=== PATIENT | female | born 1995 | race Caucasian/White ===

== ENCOUNTER 2017-02-05 17:21 | Emergency (ER) | payer SELFPAY ==
[~2017-02-05] VITALS: Ht 167.6 cm; Wt 45.0 kg
[~2017-02-05 17:21] MED LIST: TRAM-388 PO
[2017-02-05 17:30] VITALS: BP 149/88; PULSE 120; RESP 18; TEMP 98.2; O2SAT 97
[2017-02-05] MEDS ORDERED: TETANUS/DIPHTHERIA TOXOID ADULT 0.5 ML VIAL IM ONE (18:15)
[2017-02-05] MEDS ORDERED: IBUP800T23 PO (18:25)
[2017-02-05] MEDS ORDERED: CEPH-460 PO (18:25)
[2017-02-05 18:26] VITALS: PULSE 100; RESP 16; O2SAT 98
--- NOTE | 2017-02-05 18:26 | PD ---
HPI Chief Complaint: Laceration/Skin Injury Time Seen by Provider: 17:50 Travel History International Travel<30 days: No Contact w/Intl Traveler<30days: No Traveled to known affect area: No History of Present Illness HPI Patient is a 21-year-old female presenting to emergency for evaluation of laceration to her right third, fourth, and fifth fingers. Patient states she was reaching to her purse to get something when she cut them on her pocket knife which was open. She reports the pain is a 7 out of 10 and describes it as aching and sore. She is not up-to-date with her tetanus vaccine. She denies any other plaintive this time. She denies any numbness, tingling, weakness in her extremity. [facility] Past Medical History Diminished Hearing: No Fibromyalgia: Yes Musculoskeletal: Yes (BILATERAL WRIST FX'S AGE 1) Immunizations Current: Yes Migraines: Yes ?: Unknown LMP: 2 WEEKS AGO : 1 : 1 Social History Alcohol Use: Yes (MODERATE) Tobacco Use: Yes (1 PPD) Substance Use: Yes (MARIJUANA, QUIT K2 2011) Allergies-Medications (Allergen,Severity, Reaction): Coded Allergies: No Known Allergies (Verified , 09/14/14) Reported Meds & Prescriptions Reported Meds & Active Scripts Active No Active Prescriptions or Reported Medications Review of Systems Except as stated in HPI: all other systems reviewed are Neg Musculoskeletal: Positive: Pain Skin: Positive Other (laceration) Physical Exam Narrative GENERAL: Well-nourished, well-developed patient. SKIN: Focused skin assessment warm/dry. Right fifth finger on the palmar aspect has a 1 cm superficial laceration in between the PIP and DIP joint. Right fourth finger has a 0.5cm superficial abrasion to the palmar aspect in between the PIP and DIP joint. And the third finger on the right hand has a superficial abrasion 0.5 cm long HEAD: Normocephalic. EYES: No scleral icterus. No injection or drainage. NECK: Supple, trachea midline. No JVD or lymphadenopathy. CARDIOVASCULAR: Regular rate and rhythm without murmurs, gallops, or rubs. RESPIRATORY: Breath sounds equal bilaterally. No accessory muscle use. GASTROINTESTINAL: Abdomen soft, non-tender, nondistended. MUSCULOSKELETAL: No cyanosis, or edema. BACK: Nontender without obvious deformity. No CVA tenderness. Data Data Last Documented VS Vital Signs Date Time Temp Pulse Resp B/P Pulse Ox O2 Delivery O2 Flow Rate FiO2 02/05/17 17:30 98.2 120 18 149/88 97 Orders Tetanus/Diphtheria Tox Adult (Tetanus/Di (02/05/17 18:15) MDM Medical Decision Making Medical Screen Exam Complete: Yes Emergency Medical Condition: Yes Interpretation(s) Vital Signs Date Time Temp Pulse Resp B/P Pulse Ox O2 Delivery O2 Flow Rate FiO2 02/05/17 17:30 98.2 120 18 149/88 97 Differential Diagnosis Laceration versus abrasion versus tendon injury versus bleed versus iron Narrative Course Patient is a 21-year-old female presenting to the emergency room evaluation of lacerations to her right third, fourth, fifth fingers that she sustained when she cut her on her pocket knife. Patient's tetanus vaccine was updated emergency department, she is neurovascularly intact. She has full range of motion and sensation in her right hand and fingers. Please see procedure report for laceration repair. Patient was advised that sutures were needed, 7- 10 days. She is encouraged keeps it clean and dry, cover with nonocclusive dressing. She was encouraged return to emergency department for any new or worsening symptoms. Patient verbalized understanding of these instructions. Patient stable for discharge. Procedures Procedure Narrative LACERATION LOCATION: Right fifth finger on the palmar aspect LENGTH: 1 cm NUMBER OF STITCHES/FREEMAN: 4 stitches REPAIR: The area of the laceration was prepped with Betadine and sterilely draped. The laceration was infiltrated with 1% lidocaine]. The wound was copiously irrigated and explored without evidence of foreign body, tendon injury or neurovascular injury. The wound was closed using 4-0 Prolene. This was a 1 layer repair. A sterile dressing was applied. The patient was advised to keep the dressing clean and dry. Patient tolerated the procedure well. Right fourth and fifth fingers were amador taped together Diagnosis Primary Impression: Laceration of finger Qualified Code: S61.219A - Laceration of finger, initial encounter Additional Impressions: Abrasion, finger w/o infection Need for ecwyniqwrl-iceixir-xshteoilm (Tdap) vaccine Encounter for administration of vaccine Referrals: [facility] Primary Care Physician Patient Instructions: Care For Your Stitches (ED), General Instructions Additional Instructions: Stitches will need to be removed in 7-10 days Keep stitches clean and dry, cover with Band-Aid or nonocclusive dressing You may shower, avoid pools, lotions, lakes until wound is completely healed Return to emergency department for any new or worsening symptoms Med/Other Pt SpecificInfo: Prescription(s) given Scripts Ibuprofen 800 Mg [id number] Mg PO Q6HR PRN (PAIN) #40 TAB Ref 0 Prov:Bentia Espana 02/05/17 Cephalexin (Keflex)500 Mg [id number] Mg PO Q12H 7 Days Ref 0 Prov:Benita Espana 02/05/17 Disposition: 01 DISCHARGE HOME Condition: Stable Benita Espana Feb 05, 2017 18:26
== END 2017-02-05 19:08 | disposition home or self-care (01) ==
LOC: PHEFT 17:21
DX: S61.216A Laceration without foreign body of right little finger without damage to nail, initial encounter (principal); S60.414A Abrasion of right ring finger, initial encounter; S60.412A Abrasion of right middle finger, initial encounter; F17.200 Nicotine dependence, unspecified, uncomplicated; Z23 Encounter for immunization; Z87.39 Personal history of other diseases of the musculoskeletal system and connective tissue; W26.0XXA Contact with knife, initial encounter
CPT/HCPCS: 12001; 90471; 90714

== ENCOUNTER 2017-02-12 20:06 | Emergency (ER) | payer SELFPAY ==
[~2017-02-12 20:06] MED LIST changes: +CEPH-460 PO; +IBUP800T23 PO; -TRAM-388 PO
[2017-02-12 20:09] VITALS: BP 139/93; PULSE 96; RESP 20; TEMP 98.4; O2SAT 96
--- NOTE | 2017-02-12 20:31 | PD ---
HPI Chief Complaint: Wound/Suture/Staple Re-Check Time Seen by Provider: 20:27 Travel History International Travel<30 days: No Contact w/Intl Traveler<30days: No Traveled to known affect area: No History of Present Illness HPI This 21-year-old female is here for suture removal. She sustained a laceration to her right fifth and fourth fingers last week. The laceration of the fifth finger was sutured laceration of the fourth finger was not. She is having numbness and tilting type pain in the fourth finger she wonders if she may have a nerve. He has been quite painful at times. It is very sensitive to touch PFSH Past Medical History Diminished Hearing: No Fibromyalgia: Yes Musculoskeletal: Yes (BILATERAL WRIST FX'S AGE 1) Immunizations Current: Yes Migraines: Yes Influenza Vaccination: No ?: Not : 1 : 1 Social History Alcohol Use: Yes (MODERATE) Tobacco Use: Yes (1 PPD) Substance Use: Yes (MARIJUANA, QUIT K2 2011) Allergies-Medications (Allergen,Severity, Reaction): Coded Allergies: No Known Allergies (Verified , 02/12/17) Reported Meds & Prescriptions Reported Meds & Active Scripts Active Ibuprofen 800 Mg Tab 800 Mg PO Q6HR PRN Keflex (Cephalexin) 500 Mg Cap 500 Mg PO Q12H 7 Days Review of Systems General / Constitutional: No: Fever, Chills Musculoskeletal: Positive: Pain Physical Exam Narrative There is a laceration on the fifth finger which is sutured and is healing well. There are also lacerations on the fourth finger. The skin distal to the lacerations has decreased sensation. The finger is quite sensitive and Data Data Last Documented VS Vital Signs Date Time Temp Pulse Resp B/P Pulse Ox O2 Delivery O2 Flow Rate FiO2 02/12/17 20:09 98.4 96 20 139/93 96 MDM Medical Decision Making Medical Screen Exam Complete: Yes Emergency Medical Condition: Yes Medical Record Reviewed: Yes Differential Diagnosis Differential includes healing laceration, digital nerve injury Narrative Course Laceration is healing without infection and the sutures will be removed. It does appear that there is a digital nerve injury finger that was not sutured. I will recommend hand surgery follow-up Diagnosis Primary Impression: Laceration of finger Qualified Code: S61.219D - Laceration of finger, subsequent encounter Additional Impression: Injury of digital nerve of finger Qualified Code: S64.40XD - Injury of digital nerve of finger, subsequent encounter Disposition: 01 DISCHARGE HOME Condition: Stable Keshawn Rodriguez MD February 12, 2017 20:31
== END 2017-02-12 20:49 | disposition home or self-care (01) ==
LOC: PHEFT 20:06
DX: Z48.02 Encounter for removal of sutures (principal)
CPT/HCPCS: 99281

== ENCOUNTER 2017-03-11 16:55 | Emergency (ER) | payer SELFPAY ==
[~2017-03-11] VITALS: Ht 175.3 cm; Wt 50.0 kg
[2017-03-11 16:59] VITALS: BP 128/80; PULSE 109; RESP 16; TEMP 98.4; O2SAT 98
--- NOTE | 2017-03-11 18:21 | PD ---
HPI Chief Complaint: Fall Time Seen by Provider: 17:05 Travel History International Travel<30 days: No Contact w/Intl Traveler<30days: No Traveled to known affect area: No History of Present Illness HPI 21-year-old female presents to the emergency room for evaluation of left knee pain and lacerations after sustaining a ground-level fall prior to arrival.. She reports that she slipped in her kitchen falling forward onto a left flexed knee onto broken glass. She has multiple lacerations to the left knee. She denies head injury. Denies loss of consciousness. Only complaint is left knee pain. She denies headache, nausea, vomiting, chest pain, abdominal pain, shortness of breath. PFSH Past Medical History Medical History: Denies Significant Hx Diminished Hearing: No Fibromyalgia: Yes Musculoskeletal: Yes (BILATERAL WRIST FX'S AGE 1) Immunizations Current: Yes Migraines: Yes ?: Not LMP: 03/10/2017 : 1 : 1 Past Surgical History Surgical History: No Previous Surgery Social History Alcohol Use: Yes (MODERATE) Tobacco Use: Yes (1 PPD) Substance Use: Yes (MARIJUANA, QUIT K2 2011) Allergies-Medications (Allergen,Severity, Reaction): Coded Allergies: No Known Allergies (Verified , 03/11/17) Reported Meds & Prescriptions Reported Meds & Active Scripts Active No Active Prescriptions or Reported Medications Review of Systems Except as stated in HPI: all other systems reviewed are Neg Physical Exam Narrative GENERAL: Alert, female crying in room. SKIN: 4 lacerations to the left knee varying in size is from 1-5 cm. HEAD: Atraumatic. Normocephalic. EYES: Pupils equal and round. No scleral icterus. No injection or drainage. ENT: No nasal bleeding or discharge. Mucous membranes pink and moist. NECK: Trachea midline. No JVD. CARDIOVASCULAR: Regular rate and rhythm. No murmur appreciated. RESPIRATORY: No accessory muscle use. Clear to auscultation. Breath sounds equal bilaterally. No rib tenderness. GASTROINTESTINAL: Abdomen soft, non-tender, nondistended. Hepatic and splenic margins not palpable. MUSCULOSKELETAL: No obvious deformities. No clubbing. No cyanosis. No edema. Left knee tenderness. No joint effusion. Multiple lacerations to the lateral aspect of the left knee no joint penetration/involvement suspected. NEUROLOGICAL: Awake and alert. No obvious cranial nerve deficits. Motor grossly within normal limits. Normal speech. Data Data Last Documented VS Vital Signs Date Time Temp Pulse Resp B/P Pulse Ox O2 Delivery O2 Flow Rate FiO2 03/11/17 16:59 98.4 109 16 128/80 98 Orders Knee, Complete (4vws) (03/11/17 ) [facility] Medical Decision Making Medical Screen Exam Complete: Yes Emergency Medical Condition: Yes Medical Record Reviewed: Yes Differential Diagnosis Laceration, contusion, knee fracture, subcutaneous foreign body Narrative Course This is a 21-year-old female who presents emergency Department after sustaining a ground-level fall onto left flexed knee cutting knee on broken glass. She has multiple large lacerations to the left lateral aspect of the knee. No joint involvement is suspected. X-ray was obtained. No fracture identified. Small foreign body in the subcutaneous tissue seen on x-ray was removed prior to closure wound. Patient tolerated procedure well. Tetanus status is up-to- date. A splint was placed for immobilization and she was instructed to keep the sutures in for 14 days she is going to follow up with her doctor in 2 days for recheck. Procedures Procedure Narrative LACERATION LOCATION: Left knee LENGTH: 4 separate lacerations measuring 1 cm up to 5 cm NUMBER OF STITCHES/FREEMAN: [20 sutures-] REPAIR: The area of the laceration was prepped with Betadine and sterilely draped. The laceration was infiltrated with 1% lidocaine with epi. The wound was copiously irrigated and explored without evidence of foreign body, tendon injury or neurovascular injury. The wound was closed using 3-0 Ethilon. This was a single layer repair. A sterile dressing was applied. The patient was advised to keep the dressing clean and dry. Patient tolerated the procedure well. Diagnosis Primary Impression: Lacerations of multiple sites of left leg Qualified Code: S81.812A - Lacerations of multiple sites of left leg, initial encounter Referrals: Primary Care Physician Patient Instructions: General Instructions, Laceration (ED) Additional Instructions: With a splint as directed. Avoid bending the knee. Do not submerge the lacerations and water. Follow up with her primary doctor for recheck of the wound. Sutures need to be removed in 14 days. Return to emergency department if he developed fever, chills, increased pain or redness at the site. Scripts No Active Prescriptions or Reported Meds Disposition: 01 DISCHARGE HOME Condition: Stable Hayley Herrera March 11, 2017 18:21
--- NOTE | 2017-03-11 18:31 | RADHPO ---
EXAM DATE/TIME: 03/11/2017 17:57 [facility] COMPARISON: No previous studies available for comparison. INDICATIONS : Left knee pain and laceration. Patient states she fell on a glass vase. MEDICAL HISTORY : None. SURGICAL HISTORY : None. ENCOUNTER: Initial ACUITY: 1 day PAIN SCORE: 9/10 LOCATION: Left knee. FINDINGS: Four view examination of the left knee demonstrates no evidence of fracture or dislocation. Bony min eralization is normal. The articular surfaces are intact. The suprapatellar soft tissues have a nor mal configuration. A tiny linear density is seen involving the soft tissues of the lateral portion of the knee on 2 images. I am unable to see this on the remaining images. I cannot exclude a small fore ign body. CONCLUSION: Questionable tiny foreign body involving the lateral knee. Otherwise, unremarkable exam. Danial Cervantes Jr., MD on March 11, 2017 at 18:26 Board Certified Radiologist. This report was verified electronically.
== END 2017-03-11 19:52 | disposition home or self-care (01) ==
LOC: PHED 16:55 → PHEFT 19:52
DX: S81.812A Laceration without foreign body, left lower leg, initial encounter (principal); M79.7 Fibromyalgia; F17.200 Nicotine dependence, unspecified, uncomplicated; W01.0XXA Fall on same level from slipping, tripping and stumbling without subsequent striking against object, initial encounter; Y92.000 Kitchen of unspecified non-institutional (private) residence as the place of occurrence of the external cause
CPT/HCPCS: 12002; 73564